=== PATIENT | male | born 1985 | race Two or more races ===

== ENCOUNTER 2016-11-23 13:18 | Emergency (ER) | payer SELFPAY ==
[~2016-11-23] VITALS: Ht 165.1 cm; Wt 68.0 kg
[2016-11-23 13:33] VITALS: BP 106/70
[2016-11-23] MEDS ORDERED: LIDOCAINE 1% / SOD BICARB 8.4% 20 ML VIAL. IJ ONE (13:45)
[2016-11-23] MEDS ORDERED: DIPHTH,PERTUSS(ACELL),TET TOX 0.5 ML DISP.SYRIN. VAX IM ONE (13:45)
--- NOTE | 2016-11-23 13:49 | PHYS DOC ---
Past Medical History Past Medical History: No Pertinent History Past Surgical History: No Surgical History Alcohol Use: None Adult General Chief Complaint Chief Complaint: LACERATION/AVULSION HPI HPI Patient is a 31 year old male presents to the emergency department stating that he cut his left thumb on an aluminum piece on the car. He is able to move his finger and thumb without difficulty. He is unsure when his last tetanus immunization occurred. Patient is right-hand dominant. Bleeding is currently controlled. Review of Systems Review of Systems Constitutional: Denies fever or chills [] Eyes: Denies change in visual acuity, redness, or eye pain [] HENT: Denies nasal congestion or sore throat [] Respiratory: Denies cough or shortness of breath [] Cardiovascular: No additional information not addressed in HPI [] GI: Denies abdominal pain, nausea, vomiting, bloody stools or diarrhea [] : Denies dysuria or hematuria [] Musculoskeletal: Denies back pain or joint pain [] Integument: Denies rash or skin lesions. Laceration left thumb Neurologic: Denies headache, focal weakness or sensory changes [] Endocrine: Denies polyuria or polydipsia [] Current Medications Current Medications Current Medications Medications (Trade) Dose Ordered Sig/Harry Start Time Stop Time Status Last Admin Dose Admin Diphtheria/ Tetanus/Acell Pertussis (Boostrix) 0.5 ml ONCE ONCE 11/23/16 13:45 11/23/16 13:48 DC 11/23/16 13:59 0.5 ML Lidocaine/Sodium Bicarbonate (Buffered Lidocaine 1%) 20 ml 1X ONCE 11/23/16 13:45 11/23/16 13:48 DC 11/23/16 14:00 20 ML Allergies Allergies Allergies Coded Allergies Type Severity Reaction Last Updated Verified No Known Drug Allergies 11/23/16 No Physical Exam Physical Exam Constitutional: Well developed, well nourished, no acute distress, non-toxic appearance. [] HENT: Normocephalic, atraumatic, bilateral external ears normal, oropharynx moist, no oral exudates, nose normal. [] Eyes: PERRLA, EOMI, conjunctiva normal, no discharge. [] Neck: Normal range of motion, no tenderness, supple, no stridor. [] Cardiovascular:Heart rate regular rhythm Lungs & Thorax: No respiratory distress noted Skin: Warm, dry, no erythema, no rash. Patient with a 2 cm laceration to the left thumb noted bleeding is currently controlled. Patient is able to move his thumb down and up without difficulty. He does have increased pain noted at the tip of the thumb. Extremities: No tenderness, no cyanosis, no clubbing, ROM intact, no edema. [] Neurologic: Alert and oriented X 3, normal motor function, normal sensory function, no focal deficits noted. [] Psychologic: Affect normal, judgement normal, mood normal. [] Current Patient Data Vital Signs Vital Signs Date Time Temp Pulse Resp B/P (MAP) Pulse Ox O2 Delivery O2 Flow Rate FiO2 11/23/16 13:33 98.3 67 20 97 Room Air 98.3 EKG EKG [] Radiology/Procedures Radiology/Procedures [facility] [address] [place] [address] IMAGING REPORT Signed PATIENT: MANNY ELAM ACCOUNT: [id number] : 1985 LOCATION: ER AGE: 31 SEX: M EXAM STATUS: PRE ER ORD. PHYSICIAN: DANIEL NOEL APRN REASON: left thumb laceration cut on aluminium PROCEDURE: FINGER(S) LEFT Left thumb, 3 views, 11/23/2016: History, thumb laceration There is mild soft tissue deformity along the lateral aspect of the proximal phalanx. No fracture or dislocation is identified. No radiopaque foreign body is evident in the soft tissues. IMPRESSION: No acute bony abnormality is detected. DICTATED and SIGNED BY: LEXUS SEVERINO MD DATE: 11/23/16 1440 CC: DANIEL NOEL APRN ~ [] Course & Med Decision Making Course & Med Decision Making Pertinent Labs and Imaging studies reviewed. (See chart for details) X-rays were negative for any bony abnormalities per radiologist. Patient was provided with discharge instructions to keep the area clean and dry clean the site twice daily with soap and water and apply antibiotic ointment to the area. Signs and symptoms to return back to emergency department has been provided. Recommended Tylenol or ibuprofen for pain and discomfort. All questions and concerns been answered at the patient's bedside. Recommended sutures out in 7- 10 days. Patient was provided with signs and symptoms of infection: Redness, warmth, tenderness or any yellow/greenish drainage of a come from the area physician occur she is to follow up with a primary care physician immediately. [] Diane Disclaimer Dragon Disclaimer This electronic medical record was generated, in whole or in part, using a voice recognition dictation system. Departure Departure Impression: Primary Impression: Laceration Disposition: 01 HOME, SELF-CARE Condition: STABLE Patient Instructions: Laceration Care, Adult, [id number], Sutured Wound Care , [id number] Additional Instructions: X-rays were negative for any bony abnormalities. Keep the area clean and dry. Clean the site with soap and water and apply antibiotics to the area twice a day. Watch for signs and symptoms of infection: Redness, warmth, tenderness or any yellow/greenish drainage of a come from the site physician occur follow-up to primary care physician immediately. Tylenol or ibuprofen for pain and discomfort. Ice packs elevation as much as possible. Follow-up with the primary care physician in the next 7-10 days to have the sutures removed. Return back to emergency prior signs symptoms of become worse. Laceration/Wound Repair Laceration/Wound Repair : Wound Location: upper extremity Wound's Depth, Shape: superficial Wound Length (cm): 2 Wound Explored: clean Irrigated w/ Saline (ccs): 100 Betadine Prep?: Yes Volume Anesthetic (ccs): 4 Wound Debrided: minimal Wound Repaired With: sutures Suture Size/Type: 4:0 Number of Sutures: 4 Progress Digital block was provided with 1% lidocaine buffered with approximately 3 mL injected into the area. Site was irrigated with 100 mL of normal saline. Site was then cleaned with Betadine. Sterile drapes was applied. 4-0 nylon was used to suture the area with 4 interrupted sutures placed. Patient did exhibit some pain along the inner part of the thumb 1 mL of 1% lidocaine was injected into the area with a total of 4 mL injected into the thumb. Patient tolerated the procedure well. DANIEL NOEL APRN Nov 23, 2016 13:49
--- NOTE | 2016-11-23 14:43 | RAD ---
Left thumb, 3 views, 11/23/2016: History, thumb laceration There is mild soft tissue deformity along the lateral aspect of the proximal phalanx. No fracture or dislocation is identified. No radiopaque foreign body is evident in the soft tissues. IMPRESSION: No acute bony abnormality is detected.
== END 2016-11-23 15:09 | disposition home or self-care (01) ==
LOC: ER 13:18
DX: S61.012A Laceration without foreign body of left thumb without damage to nail, initial encounter (principal); W26.8XXA Contact with other sharp object(s), not elsewhere classified, initial encounter; Y93.89 Activity, other specified; Y92.89 Other specified places as the place of occurrence of the external cause; Y99.8 Other external cause status
CPT/HCPCS: 12001; 73140; 90471; 90715; 99284-25